=== PATIENT | female | born 1955 | race Caucasian/White ===

== ENCOUNTER 2017-01-28 08:27 | Outpatient (CLI) | payer BC | END 2017-01-28 20:52 | disposition home or self-care (01) | LOC: SMA 08:27 | PROVIDERS: ATTEND Physician Assistant Medical | DX: Z12.31 Encounter for screening mammogram for malignant neoplasm of breast (principal) | CPT/HCPCS: G0202 ==

== ENCOUNTER 2018-02-22 08:00 | Outpatient (CLI) | payer BC | END 2018-02-22 19:33 | disposition home or self-care (01) | LOC: SMA 08:00 | PROVIDERS: ATTEND Physician Assistant Medical | DX: Z12.31 Encounter for screening mammogram for malignant neoplasm of breast (principal) | CPT/HCPCS: 77067 ==

== ENCOUNTER 2019-01-23 11:08 | Outpatient (CLI) | payer BC | END 2019-01-23 20:24 | disposition home or self-care (01) | LOC: SMA 11:08 | PROVIDERS: ATTEND Physician Assistant Medical | DX: Z12.31 Encounter for screening mammogram for malignant neoplasm of breast (principal) | CPT/HCPCS: 77067 ==

== ENCOUNTER 2020-03-18 10:19 | Outpatient (CLI) | payer BC | END 2020-03-18 22:00 | disposition home or self-care (01) | LOC: SMA 10:19 | PROVIDERS: ATTEND Family Medicine | DX: Z12.31 Encounter for screening mammogram for malignant neoplasm of breast (principal); N64.89 Other specified disorders of breast | CPT/HCPCS: 77067 ==